=== PATIENT | male | born 1985 | race Hispanic/Latino ===

== ENCOUNTER 2020-12-30 15:08 | Emergency (ER) | payer SELFPAY ==
[~2020-12-30] VITALS: Ht 170.2 cm; Wt 79.4 kg
[2020-12-30] MEDS ORDERED: AMLODIPINE BESYLATE 5 MG TAB PO ONE (16:15)
== END 2020-12-30 16:10 | disposition home or self-care (01) ==
LOC: EDSEX 15:08 → ER 15:39
DX: I10 Essential (primary) hypertension (principal); M62.830 Muscle spasm of back; F17.210 Nicotine dependence, cigarettes, uncomplicated
CPT/HCPCS: 99283